=== PATIENT | male | born 1990 | race Native Hawaiian/Other Pacific Islander ===

== ENCOUNTER 2022-11-26 12:19 | Emergency (ER) | payer OTHER ==
[~2022-11-26] VITALS: Ht 180.3 cm; Wt 77.1 kg
== END 2022-11-26 15:14 | disposition home or self-care (01) ==
LOC: ED 12:19
DX: S90.31XA Contusion of right foot, initial encounter (principal); S93.601A Unspecified sprain of right foot, initial encounter; X58.XXXA Exposure to other specified factors, initial encounter
CPT/HCPCS: 80307; 96372; 99283; J1885